=== PATIENT | female | born 1950 | race Caucasian/White ===

== ENCOUNTER 2016-11-30 06:13 | Emergency (ER) | payer OTHER ==
[~2016-11-30] VITALS: Ht 167.6 cm; Wt 99.8 kg
--- NOTE | 2016-11-30 06:24 | ED AMS/SEIZURE/WEAK/DIZZY ---
History of Present Illness General Chief Complaint: Headache Stated Complaint: "BIBA PER EMS HEADACHE" Source: patient, family, EMS Exam Limitations: no limitations Vital Signs & Intake/Output Vital Signs & Intake/Output Vital Signs Date Time Temp Pulse Resp B/P B/P Pulse O2 O2 Flow FiO2 Mean Ox Delivery Rate 11/30 729 84 140/80 11/30 0614 77 16 148/88 94 Room Air 11/30 0626 98 Room Air 11/30 621 96.5 76 18 189/88 96 Room Air Allergies Coded Allergies: No Known Allergies (11/30/16) Triage Nurses Notes Reviewed? yes Onset: Abrupt Duration: hour(s): Timing: single episode today Injury Environment: home Severity: moderate Modifying Factors: Improves With: rest. Worsens With: movement. Associated Symptoms: nausea and vomiting HPI: 66-year-old woman in prior good health on no medications presents with vertigo and headache. She says that she awoke this morning. She sat up and suddenly felt very dizzy, "as if the world was spinning." She also started vomiting. She continues to have a headache. She she continues to be vomiting. She states that it is worse if she moves her head. She has no fever or chills diarrhea or abdominal pain. She noted that when she was throwing up she had burning pain in her chest. (JONN GARCÍA MD) Past History Travel History Traveled to [place] past 21 day No Medical History Any Pertinent Medical History? none Surgical History Surgical History: none Family History Hx Contributory? No (JONN GARCÍA MD) Review of Systems Review of Systems Constitutional: Reports: no symptoms. EENTM: Reports: no symptoms. Respiratory: Reports: no symptoms. Cardiovascular: Reports: no symptoms. GI: Reports: no symptoms. Genitourinary: Reports: no symptoms. Musculoskeletal: Reports: no symptoms. Skin: Reports: no symptoms. Neurological/Psychological: Reports: no symptoms. Hematologic/Endocrine: Reports: no symptoms. Immunologic/Allergic: Reports: no symptoms. All Other Systems: Reviewed and Negative (JONN GARCÍA MD) Physical Exam Physical Exam General Appearance: well developed/nourished, mild distress, moderate distress Head: atraumatic, normal appearance Eyes: Bilateral: normal appearance, PERRL, EOMI. 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 Skin: intact, normal color, warm/dry Core Measures ACS in differential dx? No CVA/TIA Diagnosis: No Severe Sepsis Present: No Septic Shock Present: No (RAQUEL JACOBS,JNON Davis) Physical Exam Peripheral Pulses: 2+ radial (R), 2+ radial (L) (JOSE JUAN JACOBS,PATRICK) Progress Differential Diagnosis: vertigo versus dehydration versus electrolyte abnormality versus viral syndrome. CVA is possible but less likely Plan of Care: Orders Procedure Date/time Status TROPONIN LEVEL 11/30 624 Complete LIPASE 11/30 624 Complete COMPREHENSIVE METABOLIC PANEL 11/30 624 Complete CBC WITHOUT DIFFERENTIAL 11/30 624 Complete AMYLASE 11/30 624 Complete EKG 11/30 624 Active Laboratory Tests 11/30/16 0631: Anion Gap 13, Estimated GFR > 60, BUN/Creatinine Ratio 17.8, Glucose 139 H, Calcium 9.2, Total Bilirubin 0.5, AST 29, ALT 37, Alkaline Phosphatase 102, Troponin I < 0.01, Total Protein 7.3, Albumin 4.3, Globulin 3.0, Albumin/ Globulin Ratio 1.4, Amylase 82, Lipase 210, CBC w Diff NO MAN DIFF REQ, RBC 5.41 H, MCV 85.3, MCH 27.7, RDW 14.8 H, MPV 9.7, Gran % 71.9, Lymphocytes % 21.2, Monocytes % 5.3, Eosinophils % 1.3, Basophils % 0.3, Absolute Granulocytes 7.2 H, Absolute Lymphocytes 2.1, Absolute Monocytes 0.5, Absolute Eosinophils 0.1, Absolute Basophils 0, PUBS MCHC 32.5 L 7:23 AM PATIENT EVALUATED - NEURO INTACT BP 148/88 CT SCAN - ACUTE SUBARACHNOID HEMORRHAGE INTO 3RD/4TH VENTRICLE. 7:31 AM NO ONE CONTENT MANAGEMENT CONSULTANT FOR NEUROSURGERY PER DR LIN SERVICE. [facility] CALLED FOR TRANSFER. 7:35 AM D/W DR GO - TRANSFER TO [facility]. MORPHINE IV ORDERED FOR PAIN CONTROL. [facility] CALLED. (PATRICK KLEIN MD) Initial ED EKG: normal axis, normal intervals, normal p-waves, normal QRS complex, normal sinus rhythm Hand-Off Endorsed To: PATRICK KLEIN MD Endorsed Time: 0700 Pending: CT, labs Comments: Patient has no tenderness to her abdomen to deep palpation. Signs and symptoms most consistent with benign positional vertigo. (RAQUEL JACOBS,JONN Davis) Differential Diagnosis: intracranial Hem., intracranial mass/tumor, labrynthitis Diagnostic Imaging: Viewed by Me: CT Scan. Discussed w/RAD: CT Scan. Radiology Impression: PATIENT: LEXY JUAREZ PRESENT AGE: 66 PATIENT ACCOUNT NO: [id number] : 52 LOCATION: [facility] ORDERING PHYSICIAN: JONN GARCÍA MD SERVICE DATE: 11/30/16 EXAM TYPE: CAT - CT HEAD WO IV CONTRAST EXAMINATION: CT HEAD WITHOUT CONTRAST CLINICAL INFORMATION: 66-year-old female with headache and dizziness. COMPARISON : None TECHNIQUE: Contiguous axial imaging was performed from the skull base to vertex without intravenous administration of contrast. DLP: 543.17 mGy-cm FINDINGS: Acute subarachnoid hemorrhage is seen within the cerebellar region extending to the fourth and third ventricles. There is no evidence of acute territorial infarction. No abnormal mass effect or midline shift is seen. Guevara to white matter differentiation is well preserved. No definite hydrocephalus. Calvarium is intact. The mastoid air cells and visualized portions of the paranasal sinuses are well aerated. IMPRESSION: Acute subarachnoid hemorrhage within the cerebellum with extension into the fourth and third ventricles. Recommend further evaluation for underlying aneurysm with CTA. This critical result was discussed with Dr. Klein at 7:25 AM on 11/28/2016and it was ascertained that the content and urgency of the report was understood at the time of direct communication. DICTATED BY: LOIS ALVAREZ DO DATE/TIME DICTATED:11/30/16724 INSTALLER HELPER:MORGAN DATE/TIME TRANSCRIBED:724 CONFIDENTIAL, DO NOT COPY WITHOUT APPROPRIATE AUTHORIZATION. < Electronically signed in Other Vendor System> SIGNED BY: LOIS ALVAREZ DO 11/30/16 0733 (PATRICK KLEIN MD) Departure Departure Condition: Stable Referrals: LEKNA ASCENCIO MD (PCP/Family) Departure Forms: Customer Survey General Discharge Information (RAQUEL JACOBS,JONN Davis) Departure Time of Disposition: 736 Disposition: [facility] (ACUTE) Clinical Impression Primary Impression: Vertigo Secondary Impressions: Subarachnoid bleed (PATRICK KLEIN MD) Critical Care Note Critical Care Note Critical Care Time: 30-74 min (PATRICK KLEIN MD) Disposition: [facility] (ACUTE) Clinical Impression Primary Impression: Vertigo Secondary Impressions: Subarachnoid bleed (PATRICK KLEIN MD)
[2016-11-30] MEDS ORDERED: MECLIZINE HCL25 MG PO (06:26)
[2016-11-30] MEDS ORDERED: ZOFRAN ODT4 M1 SL (06:26)
[2016-11-30 06:39] LABS: ABSOLUTE BASOPHIL COUNT 0 /CUMM (0.0-0.2); ABSOLUTE EOSINOPHIL COUNT 0.1 /CUMM (0.0-0.7); ABSOLUTE GRANULOCYTE CT 7.2 /CUMM (1.4-6.5); ABSOLUTE LYMPH COUNT 2.1 /CUMM (1.2-3.4); ABSOLUTE MONOCYTE COUNT 0.5 /CUMM (0.10-0.60); BASOPHIL % 0.3 % (0.0-2.0); EOSINOPHIL % 1.3 % (0-5); GRANULOCYTE % 71.9 % (42.2-75.2); HEMATOCRIT 46.1 % (37-47); MEAN CORPUSCULAR HGB 27.7 PG (27.0-31.0); MEAN CORPUSCULAR HGB CONC 32.5 G/DL (33.0-37.0); MEAN CORPUSCULAR VOLUME 85.3 FL (81.0-99.0); MEAN PLATELET VOLUME 9.7 FL (7.4-10.4); PLATELET COUNT 223 /CUMM (130-400); RBC DISTRIBUTION WIDTH 14.8 % (11.5-14.5); RED BLOOD CELL CT 5.41 /CUMM (4.20-5.40); WHITE BLOOD CELL COUNT 9.9 /CUMM (4.8-10.8)
[2016-11-30 07:30] VITALS: BP 140/80
--- NOTE | 2016-11-30 07:33 | CT SCAN REPORT ---
EXAMINATION: CT HEAD WITHOUT CONTRAST CLINICAL INFORMATION: 66-year-old female with headache and dizziness. COMPARISON: None TECHNIQUE: Contiguous axial imaging was performed from the skull base to vertex without intravenous administration of contrast. DLP: 543.17 mGy-cm FINDINGS: Acute subarachnoid hemorrhage is seen within the cerebellar region extending to the fourth and third ventricles. There is no evidence of acute territorial infarction. No abnormal mass effect or midline shift is seen. Guevara to white matter differentiation is well preserved. No definite hydrocephalus. Calvarium is intact. The mastoid air cells and visualized portions of the paranasal sinuses are well aerated. IMPRESSION: Acute subarachnoid hemorrhage within the cerebellum with extension into the fourth and third ventricles. Recommend further evaluation for underlying aneurysm with CTA. This critical result was discussed with Dr. Klein at 7:25 AM on 11/28/2016and it was ascertained that the content and urgency of the report was understood at the time of direct communication.
== END 2016-11-30 07:57 | disposition short-term general hospital (02) ==
LOC: ERH 06:13
PROVIDERS: Pediatrics
DX: R42 Dizziness and giddiness (principal); I60.9 Nontraumatic subarachnoid hemorrhage, unspecified
CPT/HCPCS: 93005; 93010; 96374; 96375; J2405